=== PATIENT | female | born 1955 | race African-American/Black ===

== ENCOUNTER 2024-04-25 08:35 | Outpatient (CLI) | payer BC | END 2024-04-25 08:36 | disposition home or self-care (01) | LOC: CSHSLEEP 08:35 | PROVIDERS: ATTEND Family Medicine | DX: G47.33 Obstructive sleep apnea (adult) (pediatric) (principal); R53.83 Other fatigue; G47.10 Hypersomnia, unspecified | CPT/HCPCS: 95810 ==